=== PATIENT | female | born 2000 | race Caucasian/White ===

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

== ENCOUNTER → 2022-05-28 | Outpatient (CLI) | payer OTHER ==
[~2022-05-28] MED LIST: IBUPROFEN600 MG PO; KEFLEX CAP 500500 MG PO; LODINE CAP 300300 MG PO; MACROBID 100 M100 MG PO; MEDROL4 MG PO; ROBAXIN500 MG PO; TAPAZOLE10 MG PO; TENORMIN 50 MG50 MG PO
== END ==
LOC: KOH-I 15:31
DX: M54.50 Low back pain, unspecified (principal); M54.6 Pain in thoracic spine
CPT/HCPCS: 72070; 72100

== ENCOUNTER 2022-07-20 14:35 | Emergency (ER) | payer SELFPAY | END 2022-07-20 18:38 | disposition left against medical advice (07) | LOC: ER1 14:35 | DX: R07.81 Pleurodynia (principal); W01.10XA Fall on same level from slipping, tripping and stumbling with subsequent striking against unspecified object, initial encounter | CPT/HCPCS: 71101; 84703; 99281 ==